=== PATIENT | male | born 1975 | race Caucasian/White ===

== ENCOUNTER 2020-10-18 17:14 | Emergency (ER) | payer BC ==
[~2020-10-18] VITALS: Ht 182.9 cm; Wt 88.5 kg
[2020-10-18 18:00] VITALS: BP_SYST 132
--- NOTE | 2020-10-18 18:00 | NUR ---
PT TO REMAIN IN THE ER LOBBY UNTIL ER BED BECOMES AVAILABLE.
--- NOTE | 2020-10-18 18:30 | NUR ---
PT AAO AND AMBULATORY REPORTING LEFT SIDED RIB PAIN AFTER HE FELL TODAY. PT REPORTS PAIN 7-8 ON PAIN SCALE. RESPIRATIONS EQUAL AND CLEAR. V/S STABLE.
--- NOTE | 2020-10-18 20:20 | NUR ---
DR. WILDE TO TRIAGE TO ASSESS.
--- NOTE | 2020-10-18 20:39 | NUR ---
Patient given written and verbal discharge instructions and verbalizes understanding. DR. ANDRY VALLECILLO MD discussed with patient the results and treatment provided. Patient in stable condition. ID arm band removed. Rx of TYLENOL 3 AND MOTRIN GIVEN. Patient educated on pain management and to follow up with PMD. Pain Scale 0/10. Opportunity for questions provided and answered. Medication side effect fact sheet provided.
[2020-10-18 20:43] VITALS: BP_SYST 132
== END 2020-10-18 20:39 | disposition home or self-care (01) ==
LOC: SED 17:14
DX: S22.42XA Multiple fractures of ribs, left side, initial encounter for closed fracture (principal); W10.9XXA Fall (on) (from) unspecified stairs and steps, initial encounter; Y93.89 Activity, other specified; Y92.89 Other specified places as the place of occurrence of the external cause; Y99.8 Other external cause status
CPT/HCPCS: 71100; 99283

== ENCOUNTER 2023-02-15 23:56 | Emergency (ER) | payer SELFPAY ==
[~2023-02-15] VITALS: Ht 180.3 cm; Wt 83.9 kg
[2023-02-16 00:17] VITALS: BP_SYST 154; PULSE 105; RESP 18; TEMP 98.5; O2SAT 98
[2023-02-16] MEDS ORDERED: ONDANSETRON 4 MG ODT TAB PO ONE (00:30)
[2023-02-16] MEDS ORDERED: ONDA-8 TL (01:14)
[2023-02-16] MEDS ORDERED: HYDR-500 PO (01:14)
[2023-02-16 01:25] VITALS: BP_SYST 128; PULSE 78; RESP 18; TEMP 98.3; O2SAT 98
[2023-02-16] MEDS ORDERED: chlordiazePOXIDE HCL 25 MG CAPSULE ONE (09:40)
[2023-02-16] MEDS ORDERED: THIA100T70 PO (09:56)
[2023-02-16] MEDS ORDERED: FOLI-43 PO (09:56)
[2023-02-16] MEDS ORDERED: LIB25 PO (09:56)
== END 2023-02-16 01:23 | disposition home or self-care (01) ==
LOC: SED 23:56
DX: S70.01XA Contusion of right hip, initial encounter (principal); R11.2 Nausea with vomiting, unspecified; F10.129 Alcohol abuse with intoxication, unspecified; X58.XXXA Exposure to other specified factors, initial encounter; Y93.89 Activity, other specified; Y92.89 Other specified places as the place of occurrence of the external cause; Y99.8 Other external cause status; Y90.6 Blood alcohol level of 120-199 mg/100 ml
CPT/HCPCS: 99283; 73502; Q0162

== ENCOUNTER 2023-02-16 04:54 | Inpatient (IN) | payer MEDICAID ==
[~2023-02-16] VITALS: Ht 180.3 cm; Wt 88.5 kg
[~2023-02-16 04:54] MED LIST: HYDR-500 PO; ONDA-8 TL
[2023-02-16 04:59] VITALS: BP_SYST 148; PULSE 89; RESP 30; TEMP 97.5; O2SAT 93
[2023-02-16] MEDS ORDERED: chlordiazePOXIDE HCL 25 MG CAPSULE PO ONE (05:15)
[2023-02-16] MEDS ORDERED: LORazepam 2 MG/ML VIAL IVP ONE (06:00)
[2023-02-16 06:24] LABS: BILIRUBIN,URINE NEGATIVE (NEGATIVE); BLOOD, URINE 2+ (NEGATIVE); COLOR,URINE YELLOW (YELLOW); GLUCOSE,URINE NEGATIVE (NEGATIVE); KETONES,URINE TRACE (NEGATIVE); LEUKOCYTE ESTERASE ,URINE NEGATIVE (NEGATIVE); NITRITE, URINE NEGATIVE (NEGATIVE); PROTEIN URINE 2+ (NEGATIVE); UROBILINOGEN,URINE 0.2 (0.2-1.0)
[2023-02-16 06:38] LABS: BARBITURATE, URINE NEGATIVE (NEG <=200); BENZODIAZEPINE, URINE NEGATIVE (NEG <=150); CANNABINOID, URINE NEGATIVE (NEG <=50); COCAINE, URINE NEGATIVE (NEG <=150); METHAMPHETAMINES SCREEN,URINE NEGATIVE (NEG <=500); OPIATE, URINE NEGATIVE (NEG <=100); PHENCYCLIDINE SCREEN,URINE NEGATIVE (NEG <=25); UR TRICYCLIC ANTIDEPRESSANTS NEGATIVE (NEG <=300); URINE AMPHETAMINE NEGATIVE (NEG <=500); URINE METHADONE NEGATIVE (NEG <=200); URINE OXYCODONE SCREEN NEGATIVE (NEG <=100)
[2023-02-16 06:39] LABS: BASOPHILS % (AUTO) 0.1 % (0.0-2.0); HEMATOCRIT 30.6 % (36-54); LYMPHOCYTES # (AUTO) 0.7 K/uL (1.0-5.5); LYMPHOCYTES % (AUTO) 10.2 % (20.5-51.5); MEAN CORPUSCULAR HEMOGLOBIN 25 pg (27-31); MEAN CORPUSCULAR HGB CONC 33 % (32-36); MEAN CORPUSCULAR VOLUME 75 fL (79.0-98.0); MONOCYTES # (AUTO) 0.4 K/uL (0.0-1.0); MONOCYTES % (AUTO) 5.9 % (1.7-9.3); NEUTROPHILS % (AUTO) 83.8 % (40.0-70.0); PLATELET COUNT (AUTO) 157 K/uL (130-430); RED BLOOD CELL COUNT(AUTO) 4.06 MIL/uL (4.2-6.2); RED CELL DISTRIBUTION WIDTH 15.6 % (9.0-15.0); WHITE BLOOD COUNT (AUTO) 7.1 K/uL (4.8-10.8)
[2023-02-16 06:42] LABS: BACTERIA,URINE None Seen /HPF (None Seen); CLARITY/URINE HAZY (CLEAR); WBC,URINE 0-3 /HPF (0-3)
[2023-02-16 06:43] LABS: CALCIUM 7.9 mg/dL (8.4-11.0); CREATININE 0.65 mg/dL (0.55-1.30); POTASSIUM 3.5 mmol/L (3.5-5.1)
[2023-02-16 06:48] LABS: ALBUMIN 2.9 g/dL (3.4-4.8); TOTAL BILIRUBIN 0.5 mg/dL (0.0-1.0); TOTAL PROTEIN, SERUM 6.4 g/dL (6.4-8.3)
[2023-02-16] MEDS ORDERED: NACL 0.9% 1,000 ML IV SCH (07:30)
[2023-02-16] MEDS ORDERED: LORazepam 2 MG/ML VIAL IVP PRN (07:30)
[2023-02-16] MEDS: chlordiazePOXIDE HCL 25 MG CAPSULE PO SCH ×2 (09:42→15:06)
[2023-02-16] MEDS ORDERED: LIB25 PO (09:56)
[2023-02-16] MEDS ORDERED: FOLI-43 PO (09:56)
[2023-02-16] MEDS ORDERED: THIA100T70 PO (09:56)
[2023-02-16 15:15] VITALS: BP_SYST 104; PULSE 78; RESP 18; TEMP 98; O2SAT 97
[2023-02-16 15:28] VITALS: BP_SYST 104; PULSE 78; RESP 18; TEMP 98.3; O2SAT 97
[2023-02-17] MEDS ORDERED: chlordiazePOXIDE HCL 10 MG CAPSULE PO PRN (08:30)
== END 2023-02-16 16:00 | disposition home or self-care (01) | DRG 426 ==
LOC: SED 04:54 → STU 07:16
PROVIDERS: ADMIT General Practice; ATTEND General Practice
DX: E87.1 Hypo-osmolality and hyponatremia (principal); E44.1 Mild protein-calorie malnutrition; R65.10 Systemic inflammatory response syndrome (SIRS) of non-infectious origin without acute organ dysfunction; R31.9 Hematuria, unspecified; F10.129 Alcohol abuse with intoxication, unspecified; F10.139 Alcohol abuse with withdrawal, unspecified; Z68.27 Body mass index [BMI] 27.0-27.9, adult
CPT/HCPCS: 36415; 80053; 80307; 81000; 81001; 81015; 85025; 93005; 96361; 96374; 99285; G0378; G0482; J2060

== ENCOUNTER 2023-07-25 18:10 | Emergency (ER) | payer SELFPAY ==
[~2023-07-25] VITALS: Ht 167.6 cm; Wt 77.1 kg
[~2023-07-25 18:10] MED LIST changes: +CHLO25CA11 PO; +FOLI-43 PO; +THIA100T70 PO
[2023-07-25 18:15] VITALS: BP_SYST 144; PULSE 90; RESP 17; TEMP 99.7; O2SAT 95
[2023-07-25 18:33] LABS: BILIRUBIN,URINE NEGATIVE (NEGATIVE); BLOOD, URINE 3+ (NEGATIVE); CLARITY/URINE CLEAR (CLEAR); COLOR,URINE YELLOW (YELLOW); GLUCOSE,URINE NEGATIVE (NEGATIVE); KETONES,URINE 2+ (NEGATIVE); LEUKOCYTE ESTERASE ,URINE NEGATIVE (NEGATIVE); NITRITE, URINE NEGATIVE (NEGATIVE); PROTEIN URINE 2+ (NEGATIVE); UROBILINOGEN,URINE 0.2 (0.2-1.0)
[2023-07-25] MEDS ORDERED: THIAMINE HCL 200 MG/2 ML VIAL ONE (18:40)
[2023-07-25] MEDS ORDERED: MVI 10 ML VIAL IV ONE (18:40)
[2023-07-25] MEDS ORDERED: FOLIC ACID 5 MG/ML VIAL IV ONE (18:40)
[2023-07-25] MEDS ORDERED: MAGNESIUM SULFATE 1 GM/2 ML VIAL ONE (18:40)
[2023-07-25 18:59] LABS: BARBITURATE, URINE NEGATIVE (NEG <=200); BENZODIAZEPINE, URINE NEGATIVE (NEG <=150); CANNABINOID, URINE NEGATIVE (NEG <=50); COCAINE, URINE NEGATIVE (NEG <=150); METHAMPHETAMINES SCREEN,URINE NEGATIVE (NEG <=500); OPIATE, URINE NEGATIVE (NEG <=100); PHENCYCLIDINE SCREEN,URINE NEGATIVE (NEG <=25); URINE AMPHETAMINE NEGATIVE (NEG <=500); URINE METHADONE NEGATIVE (NEG <=200); URINE OXYCODONE SCREEN NEGATIVE (NEG <=100)
[2023-07-25] MEDS: FOLIC ACID 1 MG, THIAMINE HCL 100 MG, MAGNESIUM SULFATE 1 GM, MVI 10 ML in NACL 0.9% 1,... IV ONE (18:59)
[2023-07-25 19:00] LABS: UR TRICYCLIC ANTIDEPRESSANTS NEGATIVE (NEG <=300)
[2023-07-25 19:02] LABS: BASOPHILS % (AUTO) 0.9 % (0.0-2.0); HEMATOCRIT 39.1 % (36-54); HEMOGLOBIN 13.2 g/dL (14.0-18.0); LYMPHOCYTES # (AUTO) 1.6 K/uL (1.0-5.5); LYMPHOCYTES % (AUTO) 29.7 % (20.5-51.5); MEAN CORPUSCULAR HEMOGLOBIN 27 pg (27-31); MEAN CORPUSCULAR HGB CONC 34 % (32-36); MEAN CORPUSCULAR VOLUME 80 fL (79.0-98.0); MONOCYTES # (AUTO) 0.2 K/uL (0.0-1.0); MONOCYTES % (AUTO) 4.6 % (1.7-9.3); NEUTROPHILS # (AUTO) 3.4 K/uL (1.8-7.7); NEUTROPHILS % (AUTO) 64.8 % (40.0-70.0); PLATELET COUNT (AUTO) 327 K/uL (130-430); RED BLOOD CELL COUNT(AUTO) 4.92 MIL/uL (4.2-6.2); WHITE BLOOD COUNT (AUTO) 5.3 K/uL (4.8-10.8)
[2023-07-25 19:09] LABS: ALBUMIN 3.7 g/dL (3.4-4.8); CALCIUM 8.5 mg/dL (8.4-11.0); CREATININE 0.9 mg/dL (0.55-1.30); TOTAL BILIRUBIN 0.3 mg/dL (0.0-1.0); TOTAL PROTEIN, SERUM 8.1 g/dL (6.4-8.3)
[2023-07-25 19:11] LABS: BILIRUBIN,DIRECT 0.1 mg/dL (0.0-0.3)
[2023-07-25 19:14] LABS: BACTERIA,URINE FEW /HPF (None Seen); COARSE GRANULAR CASTS,URINE 0-10 /LPF (None Seen); FINE GRANULAR CASTS,URINE 0-10 /LPF (None Seen); HYALINE CASTS, URINE 0-10 /LPF (None Seen); MUCUS,URINE 3+ /LPF (None Seen); WBC,URINE 0-3 /HPF (0-3)
[2023-07-25] MEDS: LORazepam 2 MG/ML VIAL IVP ONE (19:31)
[2023-07-25 21:20] VITALS: TEMP 97
[2023-07-25] MEDS ORDERED: ONDANSETRON HCL 4 MG/2 ML VIAL ONE (22:55)
[2023-07-25] MEDS: ONDANSETRON HCL 4 MG/2 ML VIAL IVP ONE (22:57)
[2023-07-25 23:16] VITALS: BP_SYST 145; PULSE 82; RESP 22; O2SAT 95
== END 2023-07-26 00:20 | disposition home or self-care (01) ==
LOC: SED 18:10
DX: F10.129 Alcohol abuse with intoxication, unspecified (principal); R10.31 Right lower quadrant pain; Z79.899 Other long term (current) drug therapy; Z79.2 Long term (current) use of antibiotics; Y90.8 Blood alcohol level of 240 mg/100 ml or more
CPT/HCPCS: 99284; 96365; 96366; 96375; 80307; 80076; 80048; 81001; 85025; 36415; G0482; J3490; J2060; J3475; J2405; J3411; 81000; 81015

== ENCOUNTER 2023-07-28 04:09 | Emergency (ER) | payer SELFPAY ==
[~2023-07-28] VITALS: Ht 177.8 cm; Wt 90.7 kg
[2023-07-28 04:16] VITALS: BP_SYST 128; PULSE 82; RESP 20; TEMP 97.6; O2SAT 95
[2023-07-28] MEDS: NACL 0.9% 1,000 ML IV ONE (05:08)
[2023-07-28] MEDS ORDERED: MAGNESIUM SULFATE 1 GM/2 ML VIAL ONE (05:14)
[2023-07-28] MEDS ORDERED: THIAMINE HCL 200 MG/2 ML VIAL ONE (05:14)
[2023-07-28] MEDS ORDERED: FOLIC ACID 5 MG/ML VIAL IV ONE (05:14)
[2023-07-28] MEDS ORDERED: MVI 10 ML VIAL IV ONE (05:14)
[2023-07-28] MEDS: FOLIC ACID 1 MG, THIAMINE HCL 100 MG, MAGNESIUM SULFATE 1 GM, MVI 10 ML in NACL 0.9% 1,... IV ONE (05:59)
[2023-07-28 06:05] LABS: BASOPHILS % (AUTO) 0.4 % (0.0-2.0); HEMATOCRIT 40.4 % (36-54); HEMOGLOBIN 13.6 g/dL (14.0-18.0); LYMPHOCYTES # (AUTO) 0.9 K/uL (1.0-5.5); LYMPHOCYTES % (AUTO) 10.9 % (20.5-51.5); MEAN CORPUSCULAR HEMOGLOBIN 27 pg (27-31); MEAN CORPUSCULAR HGB CONC 34 % (32-36); MEAN CORPUSCULAR VOLUME 80 fL (79.0-98.0); MONOCYTES # (AUTO) 0.4 K/uL (0.0-1.0); MONOCYTES % (AUTO) 5.1 % (1.7-9.3); NEUTROPHILS # (AUTO) 7.2 K/uL (1.8-7.7); NEUTROPHILS % (AUTO) 83.6 % (40.0-70.0); PLATELET COUNT (AUTO) 257 K/uL (130-430); RED BLOOD CELL COUNT(AUTO) 5.05 MIL/uL (4.2-6.2); RED CELL DISTRIBUTION WIDTH 18.1 % (9.0-15.0); WHITE BLOOD COUNT (AUTO) 8.6 K/uL (4.8-10.8)
[2023-07-28 06:15] VITALS: RESP 19; TEMP 97.6
[2023-07-28 06:22] LABS: ALBUMIN 3.1 g/dL (3.4-4.8); BILIRUBIN,DIRECT 0.1 mg/dL (0.0-0.3); CALCIUM 7.5 mg/dL (8.4-11.0); CREATININE 0.79 mg/dL (0.55-1.30); POTASSIUM 3.9 mmol/L (3.5-5.1); TOTAL BILIRUBIN 0.4 mg/dL (0.0-1.0); TOTAL PROTEIN, SERUM 7.2 g/dL (6.4-8.3)
[2023-07-28] MEDS: ONDANSETRON HCL 4 MG/2 ML VIAL IVP ONE ×2 (07:02→08:34)
[2023-07-28 07:20] VITALS: BP_SYST 132; PULSE 86; O2SAT 95
== END 2023-07-28 08:35 | disposition home or self-care (01) ==
LOC: SED 04:09
DX: F10.129 Alcohol abuse with intoxication, unspecified (principal); R20.0 Anesthesia of skin; Z79.899 Other long term (current) drug therapy; Y90.9 Presence of alcohol in blood, level not specified
CPT/HCPCS: 99284; 96365; 96366; 96361; 96375; 80076; 80048; 85025; 36415; 96376; G0482; J3490; J3475; J2405; J3411; J7030

== ENCOUNTER 2023-07-31 05:46 | Emergency (ER) | payer SELFPAY ==
[~2023-07-31] VITALS: Ht 172.7 cm; Wt 90.7 kg
[2023-07-31 05:51] VITALS: BP_SYST 129; PULSE 81; RESP 20; TEMP 98; O2SAT 96
[2023-07-31 06:48] LABS: CALCIUM 7.8 mg/dL (8.4-11.0); CREATININE 0.94 mg/dL (0.55-1.30); POTASSIUM 3.4 mmol/L (3.5-5.1)
[2023-07-31] MEDS: DIPHENHYDRAMINE INJ 50 MG/ML VIAL IVP ONE (08:54)
[2023-07-31 12:59] VITALS: BP_SYST 148; PULSE 120; RESP 20; TEMP 98; O2SAT 95
== END 2023-07-31 12:55 | disposition home or self-care (01) ==
LOC: SED 05:46
DX: F10.129 Alcohol abuse with intoxication, unspecified (principal); M79.641 Pain in right hand; F17.200 Nicotine dependence, unspecified, uncomplicated; Z79.899 Other long term (current) drug therapy; Y90.8 Blood alcohol level of 240 mg/100 ml or more
CPT/HCPCS: 99284; 96374; 80048; 36415; 73120; J1200; G0482